=== PATIENT | male | born 1995 | race Caucasian/White ===

== ENCOUNTER 2024-07-27 13:17 | Emergency (ER) | payer MEDICAID, OTHER ==
[~2024-07-27] VITALS: Ht 175.3 cm; Wt 99.8 kg
== END 2024-07-27 15:30 | disposition left against medical advice (07) ==
LOC: ER 13:17
DX: R22.0 Localized swelling, mass and lump, head (principal); Z53.21 Procedure and treatment not carried out due to patient leaving prior to being seen by health care provider
CPT/HCPCS: A4606; A4663

== ENCOUNTER 2024-07-27 13:28 | Emergency (ER) | payer MEDICAID | END 2024-07-27 13:34 | disposition home or self-care, planned readmission (81) | LOC: ER 13:28 | DX: R22.0 Localized swelling, mass and lump, head (principal); Z53.21 Procedure and treatment not carried out due to patient leaving prior to being seen by health care provider ==

== ENCOUNTER 2025-03-04 15:27 | Emergency (ER) | payer MEDICAID ==
[~2025-03-04] VITALS: Ht 175.3 cm; Wt 95.3 kg
[2025-03-04 15:28] VITALS: BP 128/80
[2025-03-04] MEDS ORDERED: PHEN355L3 (15:46)
[2025-03-04] MEDS ORDERED: ACET325C7 (15:46)
[2025-03-04] MEDS ORDERED: IBUP200C5 (15:46)
[2025-03-04] MEDS: IV NORMAL SALINE 1000 ML BAG IV ONE (16:05)
[2025-03-04 16:19] LABS: PLATELET COUNT (AUTO) 118 K/uL (152-348); RED BLOOD CELL COUNT(AUTO) 4.39 MIL/uL (4.06-5.63); RED CELL DISTRIBUTION WIDTH 13.3 % (12.1-16.2); WHITE BLOOD COUNT (AUTO) 11.8 K/uL (3.6-10.2)
[2025-03-04] MEDS ORDERED: KETOROLAC TROMETHAMINE 15 MG INJ ONE (16:27)
[2025-03-04] MEDS ORDERED: METOCLOPRAMIDE HCL 10 MG/2 ML VIAL ONE (16:27)
[2025-03-04] MEDS: KETOROLAC TROMETHAMINE 15 MG INJ IVP ONE (16:32)
[2025-03-04] MEDS: METOCLOPRAMIDE HCL 10 MG/2 ML VIAL IV ONE (16:32)
[2025-03-04 16:33] LABS: ASPARTATE AMINOTRANSFERASE 137.0 U/L (15-37); CREATININE 0.8 mg/dL (0.6-1.3); SODIUM SERUM 139.0 mmol/L (136-145); TOTAL PROTEIN, SERUM 7.6 g/dL (6.4-8.2); UREA NITROGEN, BLOOD 9.0 mg/dL (7-18)
[2025-03-04] MEDS ORDERED: IBUP-1953 PO (17:08)
[2025-03-04] MEDS ORDERED: METO-295 PO (17:08)
[2025-03-04 17:17] LABS: *BLOOD, URINE NEGATIVE (NEGATIVE); *CLARITY,URINE CLEAR (CLEAR); *COLOR,URINE AMBER (YELLOW); *KETONES,URINE TRACE (NEGATIVE); *PROTEIN,URINE 1+ (NEGATIVE); *UROBILINOGEN,URINE 4.0 E.U./dl (NORMAL); LEUKOCYTE ESTERASE ,URINE NEGATIVE (NEGATIVE); NITRITE, URINE NEGATIVE (NEGATIVE); UGLUCOSE NEGATIVE (NEGATIVE)
[2025-03-04 17:41] LABS: *BILIRUBIN,URIN 1+ (NEGATIVE)
[2025-03-04 17:45] LABS: SQUAMOUS EPITHELIAL CELL,UR FEW /HPF (NONE SEEN)
[2025-03-04 18:13] VITALS: BP 118/82; TEMP 207.7; O2SAT 99
[2025-03-06 05:09] LABS: HEPATITIS A AB, TOTAL Negative (Negative); HEPATITIS B SURFACE AB, QUAL Non Reactive (.); HEPATITIS B SURFACE AG Negative (Negative); HEPATITIS C VIRUS ANTIBODY Non Reactive (Non Reactive)
== END 2025-03-04 18:14 | disposition home or self-care (01) ==
LOC: ER 15:30
DX: B15.9 Hepatitis A without hepatic coma (principal); R51.9 Headache, unspecified; R11.2 Nausea with vomiting, unspecified; Z20.822 Contact with and (suspected) exposure to COVID-19
CPT/HCPCS: 99284; 96374; 96361; 96375; 87426; 87804 ×2; 80076; 80048; 81001; 83690; 85025; 84145; 85730; 87040 ×2; 87086; 36415; 83605; 86708; 86803; 87340; 86706; J1885; J2765; J7040 ×2; A4606; A4663